=== PATIENT | female | born 2000 | race Caucasian/White ===

== ENCOUNTER → 2021-12-04 | Outpatient (CLI) | payer BC ==
[~2021-12-04] VITALS: Ht 165.1 cm; Wt 69.9 kg
[~2021-12-04] MED LIST: MULTIPLE VITAMI1 TA5 PO; TAPAZOLE5 MG PO; TENORMIN 5050 MG/TAB PO
[2021-12-04 08:38] VITALS: BP 116/74; PULSE 58; TEMP 98.5
[2021-12-04 09:45] VITALS: BP 128/81; PULSE 59
== END ==
LOC: COL.RAD 08:09
DX: E04.2 Nontoxic multinodular goiter (principal)